=== PATIENT | male | born 1985 | race Caucasian/White ===

== ENCOUNTER 2022-04-16 06:08 | Emergency (ER) | payer OTHER ==
[~2022-04-16] VITALS: Ht 170.2 cm; Wt 90.7 kg
[2022-04-16] MEDS ORDERED: OMEPRAZOLE20 MG PO (06:20)
--- NOTE | 2022-04-17 20:38 | EKG ---
[facility] [address] [facility] [place] [address] Signed Sinus bradycardia Otherwise normal ECG No previous ECGs available Confirmed by Alfredo Orr MD () on 04/17/2022 8:38:36 PM Electronically Signed By: ALFREDO ORR MD 04/17/222037 PATIENT NAME: RUBINA WASHINGTON Electrocardiogram DATE OF : 87 PHYSICIAN: ALFREDO ORR MD REPORT #: [id number] REPORT IS CONFIDENTIAL AND NOT TO BE RELEASED WITHOUT AUTHORIZATION
== END 2022-04-16 07:06 | disposition home or self-care (01) ==
LOC: ED 06:08
DX: R07.89 Other chest pain (principal); Z79.899 Other long term (current) drug therapy
CPT/HCPCS: 36415; 71045; 80053; 84484; 85025; 93005; 93010; 96374; 99285-25; J1885